=== PATIENT | female | born 1985 | race Caucasian/White ===

== ENCOUNTER 2024-03-09 10:41 | Outpatient (OUT) | payer OTHER, SELFPAY ==
--- NOTE | 2024-03-09 10:55 | US_ITS ---
The [address] [address] Patient Name: GEMA FERRAAR MRN: [id number] date: 1985 Sex: F Assigned Patient Location: US Current Patient Location: US Accession/Order Number: [id number] Exam Date: 03/09/2024 11:00 Report Date: 03/09/2024 12:07 At the request of: JET FUNEZ Procedure: US pelvis w/ transvaginal EXAMINATION: US pelvis w/ transvaginal HISTORY: Pelvic Pain, Vaginal Discharge Post Hysterectomy COMPARISON: No relevant comparison available. TECHNIQUE: Transabdominal and/or transvaginal sonographic examination was performed as indicated by examination type. FINDINGS: UTERUS: Hysterectomy. RIGHT OVARY: Contains a 1.9 cm rounded heterogeneous structure with surrounding hypervascularity. Duplex Doppler demonstrates normal waveform and flow; resistive index 0.5. Ovary size: 3.8 x 2.7 x 2.2 cm LEFT OVARY: Normal size and appearance. Blood flow present within ovary on color Doppler. Ovary size: 2.9 x 2.0 x 1.1 cm CUL-DE-SAC: Unremarkable. No significant free fluid. BLADDER: Unremarkable. OTHER: None. US/US pelvis w/ transvaginal IMPRESSION: 1. Within the right ovary is a 1.9 cm complex cyst versus mass with increased surrounding blood flow. Follow-up ultrasound evaluation in 6 weeks is recommended to document regression. Electronically authenticated by: LANDY DURAN Date: 03/09/2024 12:07
== END 2024-03-09 10:42 | disposition home or self-care (01) ==
PROVIDERS: PCP Nurse Practitioner; Visit Provider Nurse Practitioner
DX: R10.2 Pelvic and perineal pain (principal); N83.291 Other ovarian cyst, right side
CPT/HCPCS: 76830; 76856

== ENCOUNTER 2025-01-16 14:55 | Emergency (ER) | payer OTHER, SELFPAY ==
[2025-01-16 15:01] VITALS: BP 146/93; PULSE 100; TEMP 36.8; O2SAT 98; BMI 22.8
--- NOTE | 2025-01-16 15:59 | ED.GENADUL1 ---
HPI HPI - General Adult General Chief complaint: Arrhythmia/Palpitations Stated complaint: IRREGULAR HEART BEAT PRESSURE IN CHEST Time Seen by Provider: 01/16/25 15:00 Source: patient Mode of arrival: walk-in Limitations: no limitations History of Present Illness HPI narrative: Patient states a couple weeks ago she was experiencing a sense of irregular heartbeat which resolved and then started back again 2 days ago. She denies chest pain or shortness of breath. She uses a nicotine inhalation device. She consumes alcohol daily in the form of red wine. She denies the use of any illicit drugs. Caffeine use is minimal. She is on a thyroid supplement. She is status post hysterectomy. Related Data Allergies Allergy/AdvReac Type Severity Reaction Status Date / Time doxycycline AdvReac Mild Vomiting Verified 01/16/25 15:12 Opioid HPI Opioid Management Most Recent Opioid Data: Ur Phencyclidine Scrn Negative (NEGATIVE) 01/16/25 16:16 01/16/25 Review of Systems ROS Status of ROS 10 or more systems reviewed and unremarkable except as noted in history and below PFSH PFSH Social History Little interest or pleasure in doing things: not at all Feeling down, depressed, or hopeless: not at all Exam Narrative Exam Narrative: Afebrile and nondistressed. Vitals are fairly stable. Pupils are equal and reactive. There is no proptosis. Oral cavity is moist. The rest of the HEENT exam is normal to inspection. Neck is supple. Lung sounds are clear to auscultation bilaterally with good air entry. Heart has regular rate and rhythm. Abdomen is soft nontender. Patient moves all extremities actively. There is no facial asymmetry. Her speech and mentation are clear and intact. There is no pallor or icterus. Constitutional Vital Signs, click to edit/add: Last Vital Signs Temp 98.2 F 01/16/25 15:01 Pulse 100 H 01/16/25 15:01 Resp 16 01/16/25 15:01 BP 146/93 H 01/16/25 15:01 Pulse Ox 98 01/16/25 15:01 O2 Del Method Room Air 01/16/25 15:01 Course Vital Signs Vital signs: Vital Signs Temperature 98.2 F 01/16/25 15:01 Pulse Rate 100 H 01/16/25 15:01 Respiratory Rate 16 01/16/25 15:01 Blood Pressure 146/93 H 01/16/25 15:01 Pulse Oximetry 98 01/16/25 15:01 Oxygen Delivery Method Room Air 01/16/25 15:01 Temperature 98.2 F 01/16/25 15:01 Pulse Rate 100 H 01/16/25 15:01 Respiratory Rate 16 01/16/25 15:01 Blood Pressure 146/93 H 01/16/25 15:01 Pulse Oximetry 98 01/16/25 15:01 Oxygen Delivery Method Room Air 01/16/25 15:01 Medical Decision Making MDM Narrative Medical decision making narrative: Patient's twelve-lead EKG is interpreted by me. Shows sinus rhythm with a rate of 74 bpm no ischemic changes are noted and there are no conduction defects. Patient's blood work is unremarkable. Her magnesium level and potassium levels are normal. No major abnormalities are identified. Her rhythm was monitored for the duration of her stay in the ED and I did not see any ectopics. Upon discharge she is advised to take 1 wwyy-lly-wflvbam magnesium tablet every night and drink some orange juice daily and contact her PCP and the administrative library assistant for further workup. She might need longer-term monitoring to uncover her suspected arrhythmia. Patient has not had any syncopal episodes. Lab Data Labs: Lab Results 01/16/25 01/16/25 Range/Units 16:15 16:16 WBC 5.3 (4.0-11.0) 10^3/uL RBC 4.29 (4.20-5.40) 10^6/uL Hgb 14.2 (12.0-16.0) g/dL Hct 40.6 (36.0-48.0) % MCV 94.6 (81.0-99.0) fL MCH 33.1 (26.7-34.0) pg MCHC 35.0 (29.9-35.2) g/dL RDW 12.0 (11.0-15.0) % Plt Count 160 (150-450) 10^3/uL MPV 10.1 (9.5-13.5) fL Neut % (Auto) 64.3 (43.0-75.0) % Lymph % (Auto) 26.2 (20.5-60.0) % Trigg % (Auto) 8.5 (1.7-12.0) % Eos % (Auto) 0.4 L (0.9-7.0) % Baso % (Auto) 0.4 (0.2-2.0) % Neut # (Auto) 3.4 (1.4-6.5) 10^3/uL Lymph # (Auto) 1.4 (1.2-3.8) 10^3/uL Trigg # (Auto) 0.5 (0.3-0.8) 10^3/uL Eos # (Auto) 0.0 (0.0-0.7) 10^3/uL Baso # (Auto) 0.0 (0.0-0.1) 10^3/uL Abs Immat Gran (auto) 0.01 (0.00-0.03) 10^3/uL Imm/Tot Granulo (auto) 0.2 (0.0-0.5) % D-Dimer <0.19 (<=0.59) mg/L FEU Sodium 139 (136-145) mmol/L Potassium 3.6 (3.5-5.1) mmol/L Chloride 103 (98-107) mmol/L Carbon Dioxide 28.9 (21.0-32.0) mmol/L Anion Gap 10.7 BUN 11.0 (7.0-18.0) mg/dL Creatinine 0.75 (0.55-1.02) mg/dL Est GFR ( Amer) >60 (>=60 mL/min/1.73m^2) Est GFR (Non-Af Amer) >60 (>=60 mL/min/1.73m^2) BUN/Creatinine Ratio 14.7 Glucose 91 (74-106) mg/dL Calcium 9.5 (8.5-10.1) mg/dL Magnesium 2.0 (1.8-2.4) mg/dL Total Bilirubin 0.6 (0.2-1.0) mg/dL AST 15 (15-37) U/L ALT 14 (14-59) U/L Alkaline Phosphatase 38 L (46-116) U/L Troponin I High Sens 4.2 (4.0-51.3) pg/mL NT-Pro-B Natriuret Pep 73.0 (<=450.0) pg/mL Total Protein 7.4 (6.4-8.2) g/dL Albumin 4.3 (3.4-5.0) g/dL Globulin 3.1 g/dL Albumin/Globulin Ratio 1.4 TSH & Free T4 Interp 0.867 (0.358-3.740) uIU/mL Urine Color Lt. yellow (YELLOW) Urine Clarity Clear (CLEAR) Urine pH 6.0 (5.0-9.0) Ur Specific Cove <=1.005 A (1.005-1.025) Urine Protein Negative (NEG/TRACE) mg/dL Urine Glucose (UA) Negative (NEGATIVE) mg/dL Urine Ketones Negative (NEGATIVE) mg/dL Urine Occult Blood Negative (NEGATIVE) Urine Nitrite Negative (NEGATIVE) Urine Bilirubin Negative (NEGATIVE) Urine Urobilinogen 0.2 (0.2-1.0) EU/dL Ur Leukocyte Esterase Negative (NEGATIVE) Urine Opiates Screen Negative (NEGATIVE) Ur Buprenorphine Scrn Negative (NEGATIVE) Ur Oxycodone Screen Negative (NEGATIVE) Urine Methadone Screen Negative (NEGATIVE) Ur Barbiturates Screen Negative (NEGATIVE) U Tricyclic Antidepress Negative (NEGATIVE) Ur Phencyclidine Scrn Negative (NEGATIVE) Ur Amphetamines Screen Negative (NEGATIVE) U Methamphetamines Scrn Negative (NEGATIVE) U Benzodiazepines Scrn Negative (NEGATIVE) Urine Cocaine Screen Negative (NEGATIVE) U Cannabinoids Screen Negative (NEGATIVE) Ethanol Quant <3 mg/dL Discharge Plan Discharge Chief Complaint: Arrhythmia/Palpitations Clinical Impression: Palpitations Patient Disposition: Home, Self-Care Time of Disposition Decision: 18:28 Condition: Good Mode of Transportation: Private Vehicle Print Language: Romanian Instructions: Heart Palpitations (ED) Additional Instructions: Drink a glass of orange juice daily. Take azks-ljc-nrsvoig magnesium oxide 400 mg every night. Follow-up with PCP and administrative library assistant for further workup. Return for worsening symptoms. Referrals: JET FUNEZ [Primary Care Provider] - 1 week Shivam Rai MD [Physician] - 1 week
[2025-01-16 16:34] LABS: Basophils Percent Auto 0.4 % (0.2-2.0); Eosinophils Percent Auto 0.4 % (0.9-7.0); Hematocrit 40.6 % (36.0-48.0); Hemoglobin 14.2 g/dL (12.0-16.0); Immature Granulocytes Abs Auto 0.01 10^3/uL (0.00-0.03); Immature Granulocytes Pct Auto 0.2 % (0.0-0.5); Lymphocytes Absolute Auto 1.4 10^3/uL (1.2-3.8); Lymphocytes Percent Auto 26.2 % (20.5-60.0); Mean Corpuscular Hemoglobin 33.1 pg (26.7-34.0); Mean Corpuscular Volume 94.6 fL (81.0-99.0); Mean Platelet Volume 10.1 fL (9.5-13.5); Monocytes Absolute Auto 0.5 10^3/uL (0.3-0.8); Monocytes Percent Auto 8.5 % (1.7-12.0); Neutrophils Absolute Auto 3.4 10^3/uL (1.4-6.5); Neutrophils Percent Auto 64.3 % (43.0-75.0); Platelet Count 160 10^3/uL (150-450); Red Blood Count 4.29 10^6/uL (4.20-5.40); White Blood Count 5.3 10^3/uL (4.0-11.0)
[2025-01-16 16:55] LABS: Alanine Aminotransferase 14 U/L (14-59); Albumin Globulin Ratio 1.4; Albumin Level 4.3 g/dL (3.4-5.0); Alkaline Phosphatase 38 U/L (46-116); Anion Gap 10.7; Aspartate Amino Transferase 15 U/L (15-37); BUN Creatinine Ratio 14.7; Bilirubin Total 0.6 mg/dL (0.2-1.0); Calcium 9.5 mg/dL (8.5-10.1); Carbon Dioxide 28.9 mmol/L (21.0-32.0); Chloride 103 mmol/L (98-107); Estimated GFR (African America >60 (>=60 mL/min/1.73m^2); Estimated GFR (Non-African Ame >60 (>=60 mL/min/1.73m^2); Ethanol <3 mg/dL; Globulin 3.1 g/dL; Glucose 91 mg/dL (74-106); Potassium 3.6 mmol/L (3.5-5.1); Sodium 139 mmol/L (136-145); Total Protein 7.4 g/dL (6.4-8.2)
[2025-01-16 17:05] LABS: D Dimer <0.19 mg/L FEU (<=0.59); TSH W/ REFLEX FT4 0.867 uIU/mL (0.358-3.740); Troponin I High Sensitivity 4.2 pg/mL (4.0-51.3)
[2025-01-16 17:09] LABS: Bilirubin Urine NEGATIVE (NEGATIVE); Blood Urine NEGATIVE (NEGATIVE); Clarity Urine CLEAR (CLEAR); Color Urine LT. YELLOW (YELLOW); Glucose Urine UA NEGATIVE (NEGATIVE); Ketones Urine NEGATIVE (NEGATIVE); Leukocyte Esterase Urine NEGATIVE (NEGATIVE); Nitrite Urine NEGATIVE (NEGATIVE); Protein Urine NEGATIVE (NEG/TRACE); Specific Gravity Urine <=1.005 (1.005-1.025); Urobilinogen Urine 0.2 EU/dL (0.2-1.0)
[2025-01-16 17:13] LABS: Urine Microscopic Indicated NO
[2025-01-16 17:22] LABS: Amphetamine Screen Urine NEGATIVE (NEGATIVE); Barbiturates Screen Urine NEGATIVE (NEGATIVE); Benzodiazepines Screen Urine NEGATIVE (NEGATIVE); Buprenorphine Screen Urine NEGATIVE (NEGATIVE); Cannabinoid Screen Urine NEGATIVE (NEGATIVE); Cocaine Screen Urine NEGATIVE (NEGATIVE); Methadone Screen Urine NEGATIVE (NEGATIVE); Methamphetamines Screen Urine NEGATIVE (NEGATIVE); Opiate Screen Urine NEGATIVE (NEGATIVE); Oxycodone Screen Urine NEGATIVE (NEGATIVE); Phencyclidine Screen Urine NEGATIVE (NEGATIVE); Tricyclic Antidepressant Urine NEGATIVE (NEGATIVE)
--- NOTE | 2025-01-16 18:16 | ECG_ITS ---
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 Measurements Intervals Stephen Rate: 74 P: 58 NM: 130 QRS: 83 QRSD: 80 T: 45 QT: 394 QTc: 422 Interpretive Statements 1100 Sinus rhythm 9110 normal ECG No previous ECG available for comparison Electronically Signed On 01-17-2025 7:42:59 EDT by LISA SABILLON M.D.
== END 2025-01-16 18:38 | disposition home or self-care (01) ==
PROVIDERS: Emergency Provider Emergency Medicine; PCP Nurse Practitioner
DX: R00.2 Palpitations (principal); F17.200 Nicotine dependence, unspecified, uncomplicated; Z90.710 Acquired absence of both cervix and uterus; Z79.899 Other long term (current) drug therapy
CPT/HCPCS: 36415; 80053; 80307; 80320; 81003; 83735; 83880; 84443; 84484; 85025; 85378; 93005; 99285

== ENCOUNTER 2025-05-10 12:49 | Outpatient (OUT) | payer OTHER, SELFPAY ==
--- OUTSIDE RECORDS SUMMARY | 2025-05-10 12:52 | XMS_ITS | Clinical Summary ---
Author Organization The [facility] Address [address] [place] [address] Care Team Providers Care Disabilities Caregiver Name Role Phone Merry Camarillo STAFF INTERPRETER-C Primary Care Provider [phone] Allergies Active Allergy Reactions Criticality Noted Date Comments Doxycycline Hives,Rash,Unknown High 04/30/2024 Latex Hives,Unknown 07/31/2021 Nickel Unknown 07/31/2021 Medications No known medications Active Problems Problem Noted Date Diagnosed Date Palpitations 02/12/2025 Pelvic pain 02/12/2025 Vaginal discharge 02/12/2025 Alcohol use 02/12/2025 Nicotine use 02/12/2025 Encounters Date Type Department Care Team Description 04/19/2025 Orders Only [place] [address] [place] [address] Elizabeth Spence MD 04/19/2025 Telephone [facility] Cardiology [address] [place] [phone] David Zhao MD 02/12/2025 10:20 AM EDT Office Visit [facility] [address] [place] [address] David Zhao MD Palpitations (Primary Dx); Alcohol use; Nicotine use from Last 3 Months Family History Relation Name Status Comments Brother Alive Father Mother Alive Sister Alive Social History Tobacco Use Types Packs/Day Years Used Date Smoking Tobacco: Former Cigarettes Smokeless Tobacco: Current Tobacco Cessation:Ready to Q uit: Not Asked; Counseling Given: Not Answered Comments:Vape daily Alcohol Use Standard Drinks/Week Comments Not Asked 0 (1 standard drink = 0.6 oz pur e alcohol) 4 per day Comments Unknown Sex and Gender Information Value Date Recorded Sex Assigned at Not on file Legal Sex Female 8:51 AM EDT Gender Identity Not on file Sexual Orientation Not on file Last Filed Vital Signs Vital Sign Reading Time Taken Comments Blood Pressure 114/76 02/12/2025 9:58 AM EDT Pulse 79 02/12/2025 9:58 AM EDT Temperature - - Respiratory Rate - - Oxygen Saturation 97% 02/12/2025 9:58 AM EDT Inhaled Oxygen Concentration - - Weight 59.9 kg (132 lb) 02/12/2025 9:58 AM EDT Height 152.4 cm (5') 02/12/2025 9:58 AM EDT Body Mass Index 25.78 02/12/2025 9:58 AM EDT Plan of Treatment Upcoming Encounters Date Type Department Care Team (Late st Contact Info) Description 05/31/2025 9:20 AM EDT Office Visit [facility] Heart at [facility] [address] [place] [address] David Zhao MD [address] [place] [address] Health Maintenance Due Date Last Done Comments Depression Screening 1999 Varicella Vaccines (1 of 2 - 13+ 2-dose series) 2000 Hepatitis B Vaccines (1 of 3 - 19+ 3-dose series) 2006 Pap Smear 2008 Cervical Cancer Screening 2017 HPV/Cotest 2017 COVID-19 Vaccine ( season) 2024 11/12/2021, 04/12/2021, 04/02/2021, Additional history exists Influenza Vaccine (#1) 2025 Adult Tetanus 05/31/2029 05/31/2019 Zoster Vaccines (1 of 2) 2037 HIB Vaccines Aged Out No longer eligi ble based on patient's age to complete this topic HPV Vaccines Aged Out No longer eligi ble based on patient's age to complete this topic IPV Vaccines Aged Out No longer eligi ble based on patient's age to complete this topic Meningococcal B Vaccine Aged Out No l onger eligible based on patient's age to complete this topic Meningococcal Vaccine Aged Out No jena carlton eligible based on patient's age to complete this topic Pneumococcal Vaccine: Pediatrics (0 to 5 Years) and At-Risk Patients (6 to 64 Years) Aged Out No longer eligible based on patient's age to complete this topic Rotavirus Vaccines Aged Out No longer eligible based on patient's age to complete this topic Procedures Procedure Name Priority Date/Time Associated Diagnosis Comments CARDIAC EVENT MONITOR Routine 02/12/2025 10:16 AM EDT from Last 3 Months Results * Cardiac event monitor (02/12/2025 10:16 AM EDT) Anatomical Region Laterality Modality Other Historical Provider [facility] CHRIS WEI Final Result from Last 3 Months Insurance PLAN Care Teams Disabilities Caregiver Relationship Specialty Start Date End Date Merry Camarillo FNP-C [address] [place] [address] PCP - General Nurse Practitioner 02/12/25
--- OUTSIDE RECORDS SUMMARY | 2025-05-10 12:52 | XMS_ITS | Clinical Summary ---
Author Organization [facility] Address [address] [place] [address] Care Team Providers Care Programs Assistant Name Role Phone Merry Camarillo BOARD WRITER Unavailable Unallocated, [facility] Provider MD Primary Care Provi shara Allergies Active Allergy Reactions Criticality Noted Date Comments Doxycycline Hives,Rash High 04/30/2024 Latex Hives,Unknown 07/31/2021 Medications Multiple Vitamins-Minerals (MULTIVITAMIN ADULT, MINERALS, PO) Active Social History Tobacco Use Types Packs/Day Years Used Date Smoking Tobacco: Former Cigarettes 1 8 Smokeless Tobacco: Never Alcohol Use Standard Drinks/Week Comments Yes 11 (1 standard drink = 0.6 oz pu re alcohol) Comments Unknown Sex and Gender Information Value Date Recorded Sex Assigned at Female 05/01/2024 3:20 PM EDT Legal Sex Female 11:47 PM EDT Gender Identity Female 05/01/2024 3:20 PM EDT Sexual Orientation Bisexual 05/01/2024 3: 20 PM EDT Last Filed Vital Signs Vital Sign Reading Time Taken Comments Blood Pressure 119/72 03/02/2023 12:00 PM EDT Pulse - - Temperature - - Respiratory Rate - - Oxygen Saturation - - Inhaled Oxygen Concentration - - Weight 59.9 kg (132 lb) 05/02/2024 1:42 PM EDT Height 167.6 cm (5' 6 ) 05/02/2024 1:42 PM EDT Body Mass Index 21.31 05/02/2024 1:42 PM EDT Plan of Treatment Health Maintenance Due Date Last Done Comments Pap Smear 2008 Cervical Cancer Screening 2017 HPV/Cotest 2017 Influenza Vaccine (#1) 2025 Insurance LAINE SINGH Care Teams Programs Assistant Relationship Specialty Start Date End Date Unallocated, [facility], [address] [place] [address] PCP - General Family Medicine 06/22/24 Merry Camarillo NP [address] [place] [address] Referring Physician Family Medicine 06/22/24
--- OUTSIDE RECORDS SUMMARY | 2025-05-10 12:52 | XMS_ITS | Clinical Summary ---
Author Organization [facility] Address [id number] [address] [place] [address] Care Team Providers Care Legislative Correspondent Name Role Phone No Pcp, No Pcp Primary Care Provider Unavailabl e Allergies Active Allergy Reactions Criticality Noted Date Comments Latex Hives 07/31/2021 Nickel 07/31/2021 Medications No known medications Active Problems No known active problems Social History Tobacco Use Types Packs/Day Years Used Date Smoking Tobacco: Former Vaping/E-cigarettes Smokeless Tobacco: Never Alcohol Use Standard Drinks/Week Comments Yes 14 (1 standard drink = 0.6 oz pu re alcohol) Childcare Answer Date Recorded Childcare Unknown 04/05/2019 Employment Answer Date Recorded Employment Unknown 04/05/2019 Comments Unknown Sex and Gender Information Value Date Recorded Sex Assigned at Not on file Legal Sex Female 11:35 AM EDT Gender Identity Not on file Sexual Orientation Not on file Last Filed Vital Signs Vital Sign Reading Time Taken Comments Blood Pressure 138/90 07/31/2021 11:12 AM EDT Pulse 82 07/31/2021 11:12 AM EDT Temperature - - Respiratory Rate 16 07/31/2021 11:12 AM EDT Oxygen Saturation - - Inhaled Oxygen Concentration - - Weight 64 kg (141 lb) 07/31/2021 11:12 AM EDT Height 162.6 cm (5' 4 ) 07/31/2021 11:12 AM EDT Body Mass Index 24.2 07/31/2021 11:12 AM EDT Plan of Treatment Health Maintenance Due Date Last Done Comments Depression Screening 1999 Tobacco Screening 1999 Adult BMI Screening 2005 Pap Smear 2008 COVID-19 Vaccine ( season) 06/25/202406/2021, 03/12/2021 Influenza Vaccine 06/25/2025 DTaP,Tdap and Td Vaccines (2 - Td or Tdap) 05/31/2029 05/31/2019 Medical Devices Not on file Care Teams Legislative Correspondent Relationship Specialty Start Date End Date No Pcp, [place] [address] PCP - General Family Medicine 06/26/21
--- NOTE | 2025-05-10 13:00 | CA_ITS ---
Patient Name: GEMA FERRARA MR#: [id number] : 1985 Exam Date: 05/10/2025 Ordering Doctor: DR. CAROLYNE HENDRICKSON M.D. ECHOCARDIOGRAM REPORT PROCEDURE: CA ECHO DOPPLER COMPLETE INDICATIONS: Palpitations, vape COMPARISON: None. DESCRIPTION: COMPLETE ECHOCARDIOGRAM Real-time transthoracic echocardiography with 2D, M-mode, spectral and color flow Doppler performed. QUALITY: Technical quality was good. LEFT VENTRICLE: Normal chamber size. Normal left ventricular wall thickness. LV EF: Normal left ventricular ejection fraction, (>55%). DIASTOLIC: Normal diastolic function. ATRIAL SEPTUM: Visually appears intact. LEFT ATRIUM: Normal chamber size. RIGHT ATRIUM: Normal chamber size. RIGHT VENTRICLE: Normal chamber size. Normal right ventricular systolic function. TRICUSPID VALVE: Normal mobility and thickness. No stenosis with trivial regurgitation. Unable to assess right-sided pressure due to lack of measurable tricuspid regurgitation. MITRAL VALVE: Normal mobility and thickness. No evidence of mitral valve stenosis. There is no mitral annular calcification. No mitral regurgitation. AORTIC VALVE: Normal trileaflet appearance. No visible sclerosis. Normal leaflet mobility. No evidence of aortic valve stenosis. No aortic regurgitation. AORTIC ROOT: Normal diameter and appearance. PULMONIC VALVE: Normal thickness and mobility. No stenosis. No regurgitation. PERICARDIUM: No evidence of pericardial effusion. IVC: Collapses with inspiration. CONCLUSION: 1. Global left ventricular systolic function is normal; estimated ejection fraction is 55 to 60% 2. Normal right ventricular size and systolic function 3. Normal diastolic function 4. The left atrium is normal in size 5. No significant valvular abnormalities Adult Echocardiography Procedure Report Left Ventricle LVEDD (3.7 - 5.6 cm): 4.90 cm LVESD (2.2 - 4.0 cm): 3.46 cm LVIVS thickness (0.6 - 1.2 cm): 0.62 cm LVPW thickness (0.5 - 1.0 cm): 0.76 cm e': 0.17 m/s E - e': 3.35 LVOT Max Gradient: 2.44 mm[Hg] LVOT Area (cm2): 0.78 m/s Peak Velocity (LVOT): 0.78 m/s LVOT Diameter 2.10 cm Left Ventricular Ejection Fraction: 60.18 % Left Atrium LA Volume Index (2D A2C): 33.62 ml/m2 Left Atrium Systolic Dimension: 3.21 cm Mitral Valve MV E to A Ratio: 1.30 Mitral Valve A-Wave Peak Velocity: 0.45 m/s Mitral Valve E-Wave Peak Velocity: 0.58 m/s Right Ventricle Aorta AO Root Diam: 3.06 cm Aortic Valve AoV Area (Peak Barak): 2.42 cm2, 2.42 cm2 Peak Velocity(Antegrade Flow): 1.12 m/s Peak Gradient(Antegrade Flow): 5.03 mm[Hg] Tricuspid Valve Pulmonic Valve Mean Gradient: 2.17 mm[Hg], 2.22 mm[Hg] Mean Velocity: 0.69 m/s, 0.71 m/s Peak Velocity: 0.74 m/s Peak Gradient: 2.18 mm[Hg], 3.87 mm[Hg], 3.87 mm[Hg] Right Atrium Right Atrium Systolic Pressure: 20.62 ml, 20.62 ml Dictated by: Jeannie Bryant M.D. on 05/10/2025 at 16:47 Approved by: Jeannie Bryant M.D. on 05/10/2025 at 16:56
== END 2025-05-10 12:50 | disposition home or self-care (01) ==
LOC: CARD 12:50
PROVIDERS: PCP Nurse Practitioner; Visit Provider Internal Medicine Cardiovascular Disease
DX: R00.2 Palpitations (principal)
CPT/HCPCS: 93306